=== PATIENT | male | born 1975 | race Two or more races ===

== ENCOUNTER 2019-04-13 18:39 | Emergency (ER) | payer MEDICAID ==
[~2019-04-13] VITALS: Ht 167.6 cm; Wt 59.0 kg
[2019-04-13 18:33] VITALS: BP 178/108
--- NOTE | 2019-04-13 19:00 | NUR ---
called for triage. not in waiting room.
--- NOTE | 2019-04-13 19:10 | NUR ---
ED Nurse Note: patient called for triage. not in the waiting room.
--- NOTE | 2019-04-13 19:20 | NUR ---
ED Nurse Note: patient called for triage. not in waiting room.
== END 2019-04-13 19:10 | disposition left against medical advice (07) ==
LOC: EDBD 18:39 → EMR 18:59
DX: Z53.21 Procedure and treatment not carried out due to patient leaving prior to being seen by health care provider (principal)
CPT/HCPCS: 99283